=== PATIENT | female | born 1975 | race Caucasian/White ===

== ENCOUNTER 2023-01-26 12:32 | Emergency (ER) | payer SELFPAY ==
[2023-01-26] MEDS ORDERED: Morphine 2 MG/ML VIAL ONE (19:58)
[2023-01-26] MEDS ORDERED: Silver Nitrate Application 1 EACH ONE (19:59)
[2023-01-26] MEDS ORDERED: Ondansetron PF 4 MG/2 ML Vial ONE (20:05)
== END 2023-01-26 21:03 | disposition home or self-care (01) ==
LOC: CSHERS 12:32
DX: N84.2 Polyp of vagina (principal)
CPT/HCPCS: 76856; 88305; 96374; 96375; J2272; J2405